=== PATIENT | male | born 1970 | race Caucasian/White ===

== ENCOUNTER 2018-08-16 00:10 | Emergency (ER) | payer OTHER ==
[~2018-08-16] VITALS: Ht 180.3 cm; Wt 74.4 kg
[2018-08-16 00:24] VITALS: Ht 180.3 cm; Wt 74.4 kg
[2018-08-16 00:47] VITALS: BP 143/85
== END 2018-08-16 00:47 | disposition other institution (70) ==
LOC: ED 00:10
DX: Z02.89 Encounter for other administrative examinations (principal); S67.194A Crushing injury of right ring finger, initial encounter; W22.8XXA Striking against or struck by other objects, initial encounter; Y93.89 Activity, other specified; Y92.89 Other specified places as the place of occurrence of the external cause; Y99.8 Other external cause status